=== PATIENT | male | born 1995 | race Two or more races ===

== ENCOUNTER 2023-12-12 12:30 | Emergency (ER) | payer MEDICAID, OTHER ==
[~2023-12-12] VITALS: Ht 170.2 cm; Wt 81.6 kg
[2023-12-12 12:58] VITALS: TEMP 98.1
[2023-12-12] MEDS: IV NS 0.9% 1,000 ML BAG IV ONE (14:00)
[2023-12-12] MEDS ORDERED: LORAZEPAM INJ 2 MG/ML VIAL ONE (14:03)
[2023-12-12] MEDS: LORAZEPAM INJ 2 MG/ML VIAL IV ONE (14:35)
[2023-12-12 16:17] VITALS: BP 132/74; O2SAT 99
== END 2023-12-12 15:55 | disposition home or self-care (01) ==
LOC: ER 12:45
DX: R07.9 Chest pain, unspecified (principal); R51.9 Headache, unspecified; F19.10 Other psychoactive substance abuse, uncomplicated
CPT/HCPCS: 99285; 96360; 71045; 93005; 36415; 84484; J2060; J7030